=== PATIENT | female | born 1995 | race Caucasian/White ===

== ENCOUNTER → 2021-06-30 | Outpatient (REF) | payer OTHER, SELFPAY | LOC: M WUC 15:32 | PROVIDERS: ATTEND Physician Assistant | DX: L02.511 Cutaneous abscess of right hand (principal) ==

== ENCOUNTER 2022-05-11 01:37 | Inpatient (IN) | payer OTHER, SELFPAY ==
[2022-05-11] VITALS (43 sets, daily range): BP systolic 117–169; BP diastolic 63–104
[~2022-05-11] VITALS: Ht 154.9 cm; Wt 72.1 kg
[2022-05-11] MEDS ORDERED: LR 1,000 ML IV SCH ×2 (02:35→07:45)
[2022-05-11] MEDS ORDERED: LR 1,000 ML IV ONE (02:35)
[2022-05-11] MEDS ORDERED: LIDOCAINE 1% MDV 20ML VIAL INFIL PRN (03:25)
[2022-05-11] MEDS ORDERED: METHYLERGONOVINE MALEATE 0.2 MG/ML VIAL (J2210) IM PRN (03:25)
[2022-05-11] MEDS ORDERED: OXYTOCIN DRIP 30 UNITS in IV 1 EA IV PRN ×4 (03:25)
[2022-05-11 03:36] LABS: HEMOGLOBIN 13.7 g/dl (12.0-15.5); MEAN CORPUSCULAR HEMOGLOBIN 30.8 pg (27.0-33.0); MEAN CORPUSCULAR HGB CONC 34.3 g/dl (32.0-36.5); MEAN CORPUSCULAR VOLUME 89.9 fl (80.0-96.0); PLATELET COUNT, AUTOMATED 270 10^3/uL (150-450); RED BLOOD COUNT 4.45 10^6/uL (4.00-5.40); WHITE BLOOD COUNT 15.8 10^3/uL (4.0-10.0)
[2022-05-11] MEDS ORDERED: CALCIUM CARBONATE 500 MG CHEW U/D PO ONE (04:00)
[2022-05-11] MEDS: LR 1,000 ML IV SCH ×3 (05:38→12:46)
[2022-05-11] MEDS ORDERED: OXYTOCIN DRIP 30 UNITS in IV 1 EA IV SCH (07:45)
[2022-05-11] MEDS ORDERED: FENTANYL 2MCG/ML ROPIVACAINE 0.2% IN 0.9% NACL 100ML IVBAG As Ordered ONE (08:37)
[2022-05-11] MEDS ORDERED: ONDANSETRON 4MG 2ML VIAL IV PRN (09:00)
[2022-05-11] MEDS ORDERED: ePHEDrine SULFATE 25 MG/5 ML(5MG/ML) SYRINGE IVP PRN (09:00)
[2022-05-11] MEDS ORDERED: diphenhydrAMINE 50MG/ML VIAL (J1200) IV PRN (09:00)
[2022-05-11] MEDS ORDERED: LR 500 ML IV PRN (09:00)
[2022-05-11] MEDS ORDERED: NALOXONE INJ 0.4MG/1ML VIAL (J2310 PER 1MG) IV PRN (09:00)
[2022-05-11] MEDS ORDERED: EPIDURAL/PCA KEYS XX PRN (09:00)
[2022-05-11] MEDS: FENTANYL/ROPIVACAINE/NACL BAG 100 ML EPIDURAL SCH ×2 (11:21→17:47)
[2022-05-11] MEDS ORDERED: ACETAMINOPHEN 500 MG TAB PO ONE (13:05)
[2022-05-11] MEDS ORDERED: CALCIUM CARBONATE 500 MG CHEW U/D PO PRN (16:00)
[2022-05-12] VITALS (12 sets, daily range): BP systolic 121–142; BP diastolic 64–92
[2022-05-12] MEDS: FENTANYL/ROPIVACAINE/NACL BAG 100 ML EPIDURAL SCH (00:49)
[2022-05-12 02:18] LABS: CORD GAS ABE A -21.3; CORD GAS ABE V -19.9; CORD GAS HCO3 V 12.4 MEQ/L; CORD GAS O2 SAT A 15.5 %; CORD GAS O2 SAT V 38.7 %; CORD GAS PCO2 A 78.5 mmHg; CORD GAS PCO2 V 54.4 mmHg; CORD GAS PO2 A 14.7 mmHg; CORD GAS PO2 V 23.5 mmHg; CORD GAS SBC A 8.6 MEQ/L; CORD GAS SBC V 9.7 MEQ/L; CORD GAS TCO2 A 16.4 MEQ/L
[2022-05-12 02:23] LABS: CORD GAS PH A 6.868 UNITS; CORD GAS PH V 6.974 UNITS
[2022-05-12] MEDS ORDERED: METHYLERGONOVINE MALEATE 0.2 MG TAB PO PRN (02:25)
[2022-05-12] MEDS ORDERED: DIBUCAINE 1% OINTMENT 30GM TOP PRN (02:25)
[2022-05-12] MEDS ORDERED: ANUSOL HC CREAM 30GM TOP PRN (02:25)
[2022-05-12] MEDS ORDERED: DOCUSATE SODIUM 100MG CAPSULE PO PRN (02:25)
[2022-05-12] MEDS ORDERED: MOM 30ML SUSPENSION UDC PO PRN (02:25)
[2022-05-12] MEDS ORDERED: RHOGAM 300 MCG (1500 IU) INJ (J2790) IM SCH (02:25)
[2022-05-12] MEDS ORDERED: IBUPROFEN 800 MG TAB PO PRN (02:25)
[2022-05-12] MEDS: ACETAMINOPHEN 500 MG TAB PO PRN ×2 (03:12→13:46)
[2022-05-12] MEDS: PRENATAL VITAMINS CHEWABLE TABLET PO SCH (07:24)
[2022-05-13] MEDS: ACETAMINOPHEN 500 MG TAB PO PRN (02:19)
[2022-05-13 06:00] VITALS: BP 123/78
[2022-05-13] MEDS: PRENATAL VITAMINS CHEWABLE TABLET PO SCH (07:41)
[2022-05-13] MEDS ORDERED: COLA100C5 PO (09:54)
[2022-05-13] MEDS ORDERED: IBUP80TA PO (09:54)
[2022-05-13] MEDS ORDERED: PRENCHW PO (09:54)
[2022-05-14] MEDS ORDERED: MEASLES,MUMPS,RUBELLA VACCINE INJ (MMR-II) (90707) SC.IMMUN ONE (09:00)
== END 2022-05-13 11:02 | disposition home or self-care (01) | DRG 805 ==
LOC: M LDO 01:37 → M LDI 03:25 → M OBS 05-12 04:32
PROVIDERS: ADMIT Obstetrics & Gynecology; ATTEND Obstetrics & Gynecology
PROC: 10E0XZZ Delivery of Products of Conception, External Approach (ICD-10-PCS; principal; 2022-05-12)
PROC: 0HQ9XZZ Repair Perineum Skin, External Approach (ICD-10-PCS; 2022-05-12)
DX: O69.81X0 Labor and delivery complicated by cord around neck, without compression, not applicable or unspecified (principal); Z37.0 Single live birth; U07.1 COVID-19; O98.52 Other viral diseases complicating childbirth; O77.0 Labor and delivery complicated by meconium in amniotic fluid; Z3A.40 40 weeks gestation of pregnancy; O70.0 First degree perineal laceration during delivery